=== PATIENT | female | born 1965 | race Caucasian/White ===

== ENCOUNTER 2023-10-04 05:04 | Inpatient (IN) | payer BC, MEDICARE ==
[2023-10-04] MEDS ORDERED: Acetaminophen 325 MG TAB PO PRN (05:36)
[2023-10-04] MEDS ORDERED: Acetaminophen 650 MG Suppository PR PRN (05:36)
[2023-10-04] MEDS ORDERED: Ondansetron PF 4 MG/2 ML Vial IVP PRN (05:36)
[2023-10-04] MEDS ORDERED: Ondansetron ODT 4 MG TAB PO PRN (05:36)
[2023-10-04 05:40] VITALS: BMI 22.6
[2023-10-04 05:57] LABS: #Basophils 0.04 10x3/uL (0.0-0.2); %Basophils 0.8 % (0.0-1.0); %Eosinophils 0.8 % (0.0-10.0); %Lymphocytes 37.6 % (21.0-51.0); %Monocytes 8.9 % (0.0-10.0); %Neutrophils 51.5 % (42.0-75.0); Hemoglobin 10.9 g/dL (12.0-16.0); Mean Corpuscular HGB CONC 34.1 g/dL (32.0-36.0); Mean Corpuscular Hemoglobin 32.2 pg (27.0-31.0); Mean Corpuscular Volume 94.7 fL (78.0-98.0); Mean Platelet Volume 9.1 fL (7.4-10.4); Platelet Count 179 10x3/uL (130-400); Red Blood Cell (RBC) Count 3.38 mill/uL (4.20-5.40)
[2023-10-04] MEDS: Lactated Ringer's 1,000 ML IV SCH (06:10)
[2023-10-04 06:19] LABS: Anion Gap 10 mmol/L (10-20); BUN (Urea Nitrogen) 19 mg/dL (9.8-20.1); Calc. Creatinine Clearance 84 mL/min (70-130); Calcium 8.2 mg/dL (7.8-10.44); Carbon Dioxide 22 mmol/L (22-29); Chloride 113 mmol/L (98-107); Estimated GFR 101; Glucose 91 mg/dL (70-105); Potassium 3.7 mmol/L (3.5-5.1); Sodium 141 mmol/L (136-145)
[2023-10-04] MEDS: Famotidine/PF 20 mg/2ml Vial SLOW IVP SCH (09:07)
[2023-10-04] MEDS: Famotidine 20 MG TAB PO SCH (09:07)
[2023-10-04] MEDS: Baclofen 10 MG TAB PO SCH (10:10)
[2023-10-05 04:53] LABS: #Basophils 0.04 10x3/uL (0.0-0.2); %Eosinophils 2.5 % (0.0-10.0); %Lymphocytes 39.9 % (21.0-51.0); %Monocytes 8.5 % (0.0-10.0); %Neutrophils 47.9 % (42.0-75.0); Hematocrit 32.4 % (36.0-47.0); Hemoglobin 11.1 g/dL (12.0-16.0); Mean Corpuscular HGB CONC 34.3 g/dL (32.0-36.0); Mean Corpuscular Hemoglobin 32.1 pg (27.0-31.0); Mean Corpuscular Volume 93.6 fL (78.0-98.0); Mean Platelet Volume 9.8 fL (7.4-10.4); Platelet Count 193 10x3/uL (130-400); RBC Distribution Width 11.9 % (11.5-14.5); Red Blood Cell (RBC) Count 3.46 mill/uL (4.20-5.40)
[2023-10-05 05:25] LABS: Anion Gap 10 mmol/L (10-20); BUN (Urea Nitrogen) 10 mg/dL (9.8-20.1); Calc. Creatinine Clearance 87 mL/min (70-130); Calcium 8.5 mg/dL (7.8-10.44); Carbon Dioxide 24 mmol/L (22-29); Chloride 110 mmol/L (98-107); Estimated GFR 102; Glucose 89 mg/dL (70-105); Potassium 3.6 mmol/L (3.5-5.1); Sodium 140 mmol/L (136-145)
[2023-10-05] MEDS: FLUoxetine HCl 20 MG CAP PO SCH (09:47)
[2023-10-05] MEDS: Gabapentin 100 MG CAP PO SCH ×2 (10:21→14:51)
[2023-10-05] MEDS: Gabapentin 300 MG CAP PO SCH (14:30)
[2023-10-05 19:33] VITALS: BP 132/80; TEMP 97.9
[2023-10-05] MEDS ORDERED: QUEtiapine 100 MG TAB PO SCH (21:00)
[2023-10-05] MEDS ORDERED: QUEtiapine 25 MG TAB PO SCH (21:00)
== END 2023-10-05 19:25 | DRG 917 ==
LOC: CCU 05:04 → MSONC 16:15
PROVIDERS: ADMIT Student in an Organized Health Care Education/Training Program; ATTEND Internal Medicine
DX: T44.6X1A Poisoning by alpha-adrenoreceptor antagonists, accidental (unintentional), initial encounter (principal); G92.8 Other toxic encephalopathy; T43.591A Poisoning by other antipsychotics and neuroleptics, accidental (unintentional), initial encounter; W19.XXXA Unspecified fall, initial encounter; F43.10 Post-traumatic stress disorder, unspecified; J45.909 Unspecified asthma, uncomplicated; I95.2 Hypotension due to drugs; E87.6 Hypokalemia; F41.9 Anxiety disorder, unspecified; F32.A Depression, unspecified; M79.7 Fibromyalgia; Z90.710 Acquired absence of both cervix and uterus; Y93.89 Activity, other specified; Y92.091 Bathroom in other non-institutional residence as the place of occurrence of the external cause
CPT/HCPCS: 36415; 80048; 85025; J7120; S0028